=== PATIENT | female | born 1975 | race Two or more races ===

== ENCOUNTER 2017-09-28 20:24 | Emergency (ER) | payer OTHER ==
[2013-06-03 15:27] VITALS: BP 120/68
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
== END 2017-09-28 21:35 | disposition home or self-care (01) ==
LOC: ED 20:24
DX: L56.8 Other specified acute skin changes due to ultraviolet radiation (principal)
CPT/HCPCS: 99283

== ENCOUNTER 2018-03-08 12:41 | Outpatient (CLI) | payer OTHER ==
[2013-06-03 15:27] VITALS: BP 120/68
== END 2018-03-08 12:43 ==
LOC: CARD 12:41
PROVIDERS: ATTEND Internal Medicine Cardiovascular Disease
DX: M25.512 Pain in left shoulder (principal); R07.9 Chest pain, unspecified
CPT/HCPCS: 99213

== ENCOUNTER 2018-04-06 08:43 | Outpatient (CLI) | payer OTHER ==
[2013-06-03 15:27] VITALS: BP 120/68
== END 2018-04-06 08:44 ==
LOC: LAB 08:43
PROVIDERS: ATTEND Family Medicine
DX: N92.0 Excessive and frequent menstruation with regular cycle (principal)
CPT/HCPCS: 36415; 84443